=== PATIENT | female | born 1995 | race African-American/Black ===

== ENCOUNTER 2017-12-18 06:42 | Emergency (ER) | payer OTHER ==
[2017-12-18 06:48] VITALS: BP 123/81; PULSE 90; RESP 16; TEMP 98.3
[2017-12-18 07:40] LABS: Appearance,Urine Clear (Clear); Bilirubin,Urine Negative (Negative); Blood,Urine Negative (Negative); Color,Urine Yellow; Glucose,Urine (UA) Negative (Negative); Ketones,Urine Negative (Negative); Leukocyte Esterase,Urine Moderate (Negative); Mucus,Urine Rare /hpf; Nitrite,Urine Negative (Negative); PH, Urine 6.5 (5.0-8.0); Protein,Urine Negative (Negative); RBC,Urine 3 /hpf (0-5); Specific Gravity,Urine 1.018 (1.001-1.035); Squamous Epithelial Cell,Urine 2 /hpf (0-4); Urobilinogen,Urine <2.0 mg/dL (<2.0); WBC,Urine 34 /hpf (0-5)
--- NOTE | 2017-12-18 07:47 | ED ---
General Adult HPI - General Chief complaint: Urogenital Stated complaint: Pelvic pain Time Seen by Provider: 12/18/17 07:05 Source: patient, RN notes reviewed, old records reviewed Mode of arrival: EMS Limitations: no limitations - History of Present Illness Initial comments: 22-year-old female presenting for evaluation of pelvic pain and lump in her right groin. Patient initially noticed her symptoms 5 days prior. She does report concern for STDs. She has had some vaginal discharge, and intermittent vaginal spotting. She is currently on Depo-Provera. Denies fever or chills. Denies dysuria but reports some urinary frequency. No change in bowels. No nausea or vomiting. No upper abdominal pain. - Related Data Home Medications Medication Instructions Recorded Confirmed Ergocalciferol (Vitamin D2) 50,000 unit PO MO 12/18/17 12/18/17 [Drisdol] Ferrous Sulfate [Iron (65 MG 325 mg PO DAILY 12/18/17 12/18/17 Elemental)] Previous Rx's Medication Instructions Recorded Doxycycline [Vibramycin] 100 mg PO BID 3 Days #28 capsule 12/18/17 metroNIDAZOLE [Flagyl] 500 mg PO BID #28 tab 12/18/17 Allergies Allergy/AdvReac Type Severity Reaction Status Date / Time No Known Allergies Allergy Verified 12/18/17 07:58 Review of Systems ROS Statement: Those systems with pertinent positive or pertinent negative responses have been documented in the HPI. ROS Other: All systems not noted in ROS Statement are negative. Past Medical History Past Medical History: No Reported History History of Any Multi-Drug Resistant Organisms: None Reported Past Surgical History: No Surgical Hx Reported Past Psychological History: No Psychological Hx Reported Smoking Status: Never smoker Past Alcohol Use History: None Reported Past Drug Use History: None Reported General Exam Limitations: no limitations General appearance: alert, in no apparent distress Head exam: Present: atraumatic, normocephalic Eye exam: Present: normal appearance, PERRL ENT exam: Present: normal exam Respiratory exam: Present: normal lung sounds bilaterally. Absent: respiratory distress, wheezes Cardiovascular Exam: Present: regular rate, normal rhythm GI/Abdominal exam: Present: soft. Absent: distended, tenderness, guarding, rebound External exam: Present: normal external exam Speculum exam: Present: vaginal discharge, cervical discharge (Cervix not completely visualized), vaginal bleeding (Slight vaginal spotting) By manual exam: Present: cervical motion tenderness Extremities exam: Present: normal inspection, normal capillary refill. Absent: pedal edema, calf tenderness Neurological exam: Present: alert, oriented X3 Skin exam: Present: warm, dry, intact Course Vital Signs 12/18/17 06:44 Temperature 98.3 F Pulse Rate 90 Respiratory 16 Rate Blood Pressure 123/81 O2 Sat by Pulse 98 Oximetry Medical Decision Making - Medical Decision Making 22-year-old female with a lump in the right groin and lower pelvic pain. Patient is concern for STDs. On exam patient does have approximately 2 cm lymphadenopathy in the right groin. Speculum exam reveals yellow vaginal discharge. There is some cervical motion tenderness on exam. Patient will be treated for GC and chlamydia and started on course of antibiotics for pelvic inflammatory disease. She will follow-up with her [employer]. Return with worsening or changing symptoms. - Lab Data Lab Results 12/18/17 12/18/17 Range/Units 07:13 07:13 Urine Color Yellow Urine Appearance Clear (Clear) Urine pH 6.5 (5.0-8.0) Ur Specific [place] 1.018 (1.001-1.035) Urine Protein Negative (Negative) Urine Glucose (UA) Negative (Negative) Urine Ketones Negative (Negative) Urine Blood Negative (Negative) Urine Nitrite Negative (Negative) Urine Bilirubin Negative (Negative) Urine Urobilinogen <2.0 (<2.0) mg/dL Ur Leukocyte Esterase Moderate H (Negative) Urine RBC 3 (0-5) /hpf Urine WBC 34 H (0-5) /hpf Ur Squamous Epith Cells 2 (0-4) /hpf Urine Mucus Rare H (None) /hpf Urine HCG, Qual Not Detected (Not Detectd) Disposition Clinical Impression: Pelvic inflammatory disease (PID), Lymphadenopathy Disposition: HOME SELF-CARE Condition: Good Instructions: Pelvic Inflammatory Disease (ED) Additional Instructions: Please follow up with AD[employer] SALES [employer] in 24-48 hrs. Prescriptions: Doxycycline [Vibramycin] 100 mg PO BID 3 Days #28 capsule metroNIDAZOLE [Flagyl] 500 mg PO BID #28 tab Is patient prescribed a controlled substance at d/c from ED?: No Referrals: Elly Johnson MD [Primary Care Provider] - 1-2 days Time of Disposition: 08:03
[2017-12-18] MEDS ORDERED: cefTRIAXone 250 MG VIAL IM STA (07:57)
[2017-12-18] MEDS ORDERED: AZITHROMYCIN 500 MG TAB PO STA (07:57)
[2017-12-19 13:24] LABS: C. trachomatis,PCR Negative (Neg,Equiv); Chlamydia trachomatis Source Vagina
[2017-12-19 13:26] LABS: N. gonorrhoeae,PCR Negative (Neg,Equiv); Neisseria Source Vagina
== END 2017-12-18 08:52 | disposition home or self-care (01) ==
LOC: EC 06:42
DX: N73.9 Female pelvic inflammatory disease, unspecified (principal); R59.0 Localized enlarged lymph nodes
CPT/HCPCS: 81001; 81025; 87491; 87591; 99284; 96372; J0696